=== PATIENT | male | born 1955 | race Caucasian/White ===

== ENCOUNTER 2017-07-10 08:00 | Outpatient (RCR) | payer OTHER ==
[~2017-07-10 08:00] MED LIST: FARXIGA PO; METFORMIN HCL1000 MG PO; Z.0.CRESTOR20 MG PO; Z.0.LOSARTAN POTAS10 PO; Z.2.METFORMIN HCL500 PO
== END 2017-07-12 ==
LOC: PT 08:00
PROVIDERS: ATTEND Specialist
DX: M75.22 Bicipital tendinitis, left shoulder (principal); M75.21 Bicipital tendinitis, right shoulder; M25.512 Pain in left shoulder; M25.511 Pain in right shoulder; M17.0 Bilateral primary osteoarthritis of knee; R26.2 Difficulty in walking, not elsewhere classified; M62.81 Muscle weakness (generalized)

== ENCOUNTER 2017-07-20 08:00 | Outpatient (RCR) | payer OTHER | END 2017-08-12 | LOC: PT 08:00 | PROVIDERS: ATTEND Specialist | DX: M17.0 Bilateral primary osteoarthritis of knee (principal); R26.2 Difficulty in walking, not elsewhere classified; M25.512 Pain in left shoulder; M25.511 Pain in right shoulder; M77.8 Other enthesopathies, not elsewhere classified; M62.81 Muscle weakness (generalized) ==

== ENCOUNTER → 2018-07-12 | Outpatient (RCR) | payer OTHER | LOC: PT 06-18 12:54 | PROVIDERS: ATTEND Specialist | DX: S33.5XXA Sprain of ligaments of lumbar spine, initial encounter (principal); M54.5 Low back pain; M17.0 Bilateral primary osteoarthritis of knee; M25.562 Pain in left knee; M25.561 Pain in right knee; M62.81 Muscle weakness (generalized) ==